=== PATIENT | female | born 1990 | race Caucasian/White ===

== ENCOUNTER 2017-07-26 08:22 | Day surgery (SDC) | payer BC, OTHER ==
[~2017-07-26] VITALS: Ht 172.7 cm; Wt 127.0 kg
[~2017-07-26 08:22] MED LIST: CEPH500 PO; CLIN300 PO; CRUTCH4 USE; Cipro500 MG PO; Flagyl500 MG PO; HYDACE5 PO; HYDROCODONE; IBUP800 PO; Keflex500 MG PO; Norco 5-325 Ta1 EACH PO; OSEL75CA PO; OXYACE5T PO; Percocet 5-3251 EACH PO; Pyridium200 MG PO; RXOXYACE PO; Verotin-Gr Cap1 EACH PO; Zofran Odt4 MG SL; Zofran8 MG PO; Zovirax800 MG PO; [UNRECOGNIZED DRUG - OTHER]
[2017-07-27 04:31] LABS: BASOPHILS ABSOLUTE AUTO 0.02 K/mm3 (0.00-0.23); BASOPHILS PERCENT AUTO 0 % (0-2); EOSINOPHILS ABSOLUTE AUTO 0.03 K/mm3 (0.00-0.68); EOSINOPHILS PERCENT AUTO 0 % (0-6); Hematocrit 35.4 % (33.0-51.0); Hemoglobin 11.6 g/dL (11.5-16.0); IMMATURE GRAN ABSOLUTE AUTO 0.13 K/mm3 (0.00-0.10); IMMATURE GRAN PERCENT AUTO 1 % (0-1); LYMPHOCYTES ABSOLUTE AUTO 1.62 K/mm3 (0.84-5.20); LYMPHOCYTES PERCENT AUTO 10 % (21-46); MONOCYTES ABSOLUTE AUTO 0.78 K/mm3 (0.16-1.47); MONOCYTES PERCENT AUTO 5 % (4-13); Mean Corpuscular HGB 28.3 pg (26.0-34.0); Mean Corpuscular HGB Conc 32.8 g/dL (31.5-36.5); Mean Corpuscular Volume 86 fL (80-100); Mean Platelet Volume 11.6 fL (9.1-12.4); NEUTROPHILS ABSOLUTE AUTO 14.08 K/mm3 (1.96-9.15); NEUTROPHILS PERCENT AUTO 85 % (41-73); Platelet Count 254 K/mm3 (150-400); RDW Coefficient Variation 12.9 % (11.7-14.2); RDW Standard Deviation 40.4 fL (35.1-46.3); White Blood Cell Count 16.66 K/mm3 (4.00-11.30)
[2017-07-27] MEDS ORDERED: Percocet 5-3251 EACH PO (10:01)
[2017-07-27] MEDS ORDERED: METO10 PO (10:02)
[2017-12-29] MEDS ORDERED: Baclofen10 MG PO (17:59)
== END 2017-07-27 11:53 | disposition home or self-care (01) ==
LOC: ORSCMMR 08:22 → SURS 12:35
PROVIDERS: Obstetrics & Gynecology
PROC: 0UT9FZZ Resection of Uterus, Via Natural or Artificial Opening With Percutaneous Endoscopic Assistance (ICD-10-PCS; principal; 2017-07-26 10:00)
DX: R87.613 High grade squamous intraepithelial lesion on cytologic smear of cervix (HGSIL) (principal); F17.210 Nicotine dependence, cigarettes, uncomplicated; E66.01 Morbid (severe) obesity due to excess calories; Z68.41 Body mass index [BMI] 40.0-44.9, adult
CPT/HCPCS: 36415; 85025; 88307; J0171; J0690; J1100; J1170; J1200; J1885; J2250; J2405; J2710; J2765; J3010; J7120

== ENCOUNTER 2018-11-17 18:17 | Emergency (ER) | payer OTHER ==
[~2018-11-17] VITALS: Ht 170.2 cm; Wt 113.4 kg
[~2018-11-17 18:17] MED LIST changes: +Baclofen10 MG PO; +METO10 PO
[2018-11-17 18:33] LABS: Source, Urine Clean Catch
[2018-11-17 18:36] LABS: Bilirubin, Urine Neg (Neg); Blood, Urine 1+ (Neg); Glucose Qualitative, Urine Neg (Neg); Ketones, Urine Neg (Neg); Leukocyte Esterase, Urine 1+ (Neg); Nitrite, Urine Neg (Neg); Protein, Urine 1+ (Neg); Specific Gravity, Urine 1.025 (1.003-1.022); Urobilinogen, Urine 1+ (Normal)
[2018-11-17 19:01] LABS: Appearance, Urine Hazy (Clear); Color, Urine Yellow (P-Yellow)
[2018-11-17 19:05] LABS: Bacteria Mod /hpf; Squamous Epithelial Cells Many /hpf (Few)
[2018-11-17] MEDS ORDERED: Pyridium200 MG PO (20:59)
[2018-11-17] MEDS ORDERED: Macrobid 100 M100 MG PO (20:59)
== END 2018-11-17 21:07 | disposition home or self-care (01) ==
LOC: ER 18:17
PROVIDERS: Emergency Medicine
DX: R30.0 Dysuria (principal); F17.210 Nicotine dependence, cigarettes, uncomplicated; Z88.0 Allergy status to penicillin; Z91.048 Other nonmedicinal substance allergy status
CPT/HCPCS: 81001; 81025; 87077; 87086; 87186; 99283

== ENCOUNTER 2019-06-20 18:11 | Emergency (ER) | payer OTHER ==
[~2019-06-20] VITALS: Ht 170.2 cm; Wt 132.4 kg
[~2019-06-20 18:11] MED LIST changes: +Macrobid 100 M100 MG PO
[2019-06-20 18:54] LABS: BASOPHILS ABSOLUTE AUTO 0.07 K/mm3 (0.00-0.23); BASOPHILS PERCENT AUTO 0 % (0-2); EOSINOPHILS PERCENT AUTO 1 % (0-6); Hematocrit 43.6 % (33.0-51.0); Hemoglobin 14.4 g/dL (11.5-16.0); IMMATURE GRAN ABSOLUTE AUTO 0.12 K/mm3 (0.00-0.10); IMMATURE GRAN PERCENT AUTO 1 % (0-1); LYMPHOCYTES ABSOLUTE AUTO 4.64 K/mm3 (0.84-5.20); LYMPHOCYTES PERCENT AUTO 29 % (21-46); MONOCYTES ABSOLUTE AUTO 0.72 K/mm3 (0.16-1.47); MONOCYTES PERCENT AUTO 5 % (4-13); Mean Corpuscular Volume 88 fL (80-100); Mean Platelet Volume 11.6 fL (9.1-12.4); NEUTROPHILS ABSOLUTE AUTO 10.13 K/mm3 (1.96-9.15); NEUTROPHILS PERCENT AUTO 64 % (41-73); Platelet Count 257 K/mm3 (150-400); RDW Standard Deviation 41.9 fL (35.1-46.3); Red Blood Cell Count 4.96 M/mm3 (3.80-5.20); White Blood Cell Count 15.88 K/mm3 (4.00-11.30)
[2019-06-20 19:14] LABS: Alanine Aminotransfer (ALT/SGP 44 U/L (12-78); Albumin, Blood 3.9 g/dL (3.4-5.0); Albumin/Globulin Ratio 1.1 (0.8-1.8); Alk Phos 94 U/L (50-136); Anion Gap 7 mmol/L (6-16); Aspartate Aminotrans (AST/SGOT 19 U/L (12-37); Bilirubin, Total 0.2 mg/dL (0.1-1.0); Blood Urea Nitrogen 12 mg/dL (8-24); Bun/Creatinine Ratio 16.5 (12.0-20.0); CO2, Blood 25 mmol/L (21-32); Calcium, Blood 8.9 mg/dL (8.5-10.1); Chloride, Blood 106 mmol/L (98-108); Creatinine, Blood 0.73 mg/dL (0.40-1.00); Globulin, Blood 3.7 g/dL (2.2-4.0); Glomerular Filtration Rate >60 (60-); Glucose, Blood 97 mg/dL (70-99); Potassium, Blood 3.8 mmol/L (3.5-5.5); Sodium, Blood 138 mmol/L (136-145); Total Protein, Blood 7.6 g/dL (6.4-8.2)
[2019-06-20 19:33] LABS: Source, Urine Clean Catch
[2019-06-20] MEDS ORDERED: Cipro250 MG/5 M PO (19:34)
[2019-06-20] MEDS ORDERED: METR59TL (19:34)
[2019-06-20] MEDS ORDERED: LIDO700A20 (19:34)
[2019-06-20 19:39] LABS: Appearance, Urine Clear (Clear); Bilirubin, Urine Neg (Neg); Blood, Urine Neg (Neg); Color, Urine Yellow (P-Yellow); Glucose Qualitative, Urine Neg (Neg); Ketones, Urine Neg (Neg); Leukocyte Esterase, Urine Neg (Neg); Nitrite, Urine Neg (Neg); Protein, Urine Neg (Neg); Specific Gravity, Urine 1.015 (1.003-1.022); Urobilinogen, Urine NORM (Normal); pH, Urine 6.5 (5.0-8.0)
[2019-06-20] MEDS ORDERED: Norco 5-325 Ta1 EACH PO (22:13)
[2019-06-20] MEDS ORDERED: Cipro500 MG PO (22:13)
[2019-06-20] MEDS ORDERED: PRED10 PO (22:13)
[2019-06-20] MEDS ORDERED: Flagyl500 MG PO (22:13)
== END 2019-06-20 22:54 | disposition home or self-care (01) ==
LOC: ER 18:11
PROVIDERS: Physician Assistant
DX: K52.9 Noninfective gastroenteritis and colitis, unspecified (principal); F17.200 Nicotine dependence, unspecified, uncomplicated; Z88.0 Allergy status to penicillin; Z91.048 Other nonmedicinal substance allergy status; Z79.899 Other long term (current) drug therapy
CPT/HCPCS: 36415; 74177; 80053; 81003; 81025; 83690; 85025; 86850; 86900; 86901; 96374-59; 96375; 99284-25; J2270; J2405; J2550; Q9967

== ENCOUNTER 2020-03-13 21:39 | Emergency (ER) | payer OTHER ==
[~2020-03-13] VITALS: Ht 170.2 cm; Wt 127.0 kg
[~2020-03-13 21:39] MED LIST changes: +Cipro250 MG/5 M PO; +LIDO700A20; +METR59TL; +PRED10 PO
[2020-03-14] MEDS ORDERED: Norco 5-325 Ta1 EACH PO (00:54)
== END 2020-03-14 01:11 | disposition home or self-care (01) ==
LOC: ER 21:39
DX: K60.2 Anal fissure, unspecified (principal); K51.90 Ulcerative colitis, unspecified, without complications; Z88.0 Allergy status to penicillin; Z91.09 Other allergy status, other than to drugs and biological substances; F17.210 Nicotine dependence, cigarettes, uncomplicated
CPT/HCPCS: 99282; A9270

== ENCOUNTER 2020-08-17 20:39 | Emergency (ER) | payer OTHER ==
[~2020-08-17] VITALS: Ht 170.2 cm; Wt 127.0 kg
== END 2020-08-17 22:29 | disposition home or self-care (01) ==
LOC: ER 20:39
DX: S93.401A Sprain of unspecified ligament of right ankle, initial encounter (principal); S93.402A Sprain of unspecified ligament of left ankle, initial encounter; Z88.0 Allergy status to penicillin; Z91.09 Other allergy status, other than to drugs and biological substances; W10.9XXA Fall (on) (from) unspecified stairs and steps, initial encounter
CPT/HCPCS: 73610; 99283-25